=== PATIENT | male | born 1985 | race Caucasian/White ===

== ENCOUNTER 2018-12-24 08:41 | Emergency (ER) | payer OTHER ==
[~2018-12-24] VITALS: Ht 167.6 cm; Wt 86.2 kg
[2018-12-24] MEDS ORDERED: KETOROLAC 15 MG/ML VIAL. IV ONE (09:30)
--- NOTE | 2018-12-24 09:31 | PHYS DOC ---
Adult General Chief Complaint Chief Complaint: FLANK PAIN HPI HPI Patient is a 33 year old male who presents with left flank pain. The pain started a week ago and has gotten worse. Located at the left flank and radiates to his abdomen and testicle. Pt describes a shooting, sharp pain. He tried taking Advil for the pain but it did not help. Pain is worse when laying on his back and side. He complains of CVA tenderness, nausea and chills. Denies hematuria, vomiting, diarrhea, fever or recent illness. He states that he has a history of passing 3 kidney stones. His first stone was diagnosed by a doctor around a year ago. His last stone was a month ago but he did not see a doctor. He is unsure if he was ever had a CT scan and does not currently have a PCP. Review of Systems Review of Systems Constitutional: Denies fever, complains of chills [] Eyes: Denies change in visual acuity, redness, or eye pain [] HENT: Denies nasal congestion or sore throat [] Respiratory: Denies cough or shortness of breath [] Cardiovascular: No additional information not addressed in HPI [] GI: Denies vomiting, bloody stools or diarrhea, complains of nausea [] : Denies dysuria or hematuria, complains of left flank pain [] Musculoskeletal: Denies back pain or joint pain [] Integument: Denies rash or skin lesions [] Neurologic: Denies headache, focal weakness or sensory changes [] Endocrine: Denies polyuria or polydipsia [] All other systems were reviewed and found to be within normal limits, except as documented in this note. Current Medications Current Medications Current Medications Medications (Trade) Dose Ordered Sig/Hanane Start Time Stop Time Status Last Admin Dose Admin Ketorolac Tromethamine (Toradol 15mg Vial) 15 mg 1X ONCE 12/24/18 09:30 12/24/18 09:49 DC Allergies Allergies Allergies Coded Allergies Type Severity Reaction Last Updated Verified No Known Drug Allergies 12/24/18 No Physical Exam Physical Exam Constitutional: Well developed, well nourished, in acute distress, non-toxic appearance. [] HENT: Normocephalic, atraumatic, bilateral external ears normal, oropharynx moist, no oral exudates, nose normal. [] Eyes: PERRLA, EOMI, conjunctiva normal, no discharge. [] Neck: Normal range of motion, no tenderness, supple, no stridor. [] Pulmonary: Normal respiratory effort no increased work of breathing no obvious chest wall trauma Abdomen: Bowel sounds normal, soft, mild cva and left mida bdotenderness, no masses, no pulsatile masses. [] Skin: Warm, dry, no erythema, no rash. [] Back: CVA tenderness. [] Extremities: No tenderness, no cyanosis, no clubbing, ROM intact, no edema. [] Neurologic: Alert and oriented X 3, normal motor function, normal sensory function, no focal deficits noted. [] Psychologic: Affect normal, judgement normal, mood normal. [] Current Patient Data Vital Signs Vital Signs Date Time Temp Pulse Resp B/P (MAP) Pulse Ox O2 Delivery O2 Flow Rate FiO2 12/24/18 09:39 97.8 88 14 146/91 (109) 97 Room Air 97.8 Lab Values Laboratory Tests Test 12/24/18 09:00 Urine Collection Type Unknown Urine Color Yellow Urine Clarity Clear Urine pH 6.5 Urine Specific [place] 1.020 Urine Protein Negative mg/dL (NEG-TRACE) Urine Glucose (UA) Negative mg/dL (NEG) Urine Ketones (Stick) Negative mg/dL (NEG) Urine Blood Negative (NEG) Urine Nitrite Negative (NEG) Urine Bilirubin Negative (NEG) Urine Urobilinogen Dipstick 0.2 mg/dL (0.2 mg/dL) Urine Leukocyte Esterase Negative (NEG) Urine RBC Rare /HPF (0-2) Urine WBC Rare /HPF (0-4) Urine Squamous Epithelial Cells Occ /LPF Urine Bacteria Few /HPF (0-FEW) EKG EKG [] Radiology/Procedures Radiology/Procedures CT abdomen pelvis without contrast[] Impressions: IMPRESSION: 1. Bilateral nephrolithiasis. No evidence of hydronephrosis. Course & Med Decision Making Course & Med Decision Making Pertinent Labs and Imaging studies reviewed. (See chart for details) []33-year-old male with kidney stone type pain CT scan noted above multiple kidney stones but no extract of hydro-patient refused lab work given the fact there is no hydro-and essentially negative urinalysis this is probably reasonable although I did tell nursing risk of a missed diagnosis without lab work. He understands he does not want to do it. Patient was given a perception for some pain medication for couple of days and advised to follow-up for any fever refractory pain Michael Disclaimer Michael Disclaimer This electronic medical record was generated, in whole or in part, using a voice recognition dictation system. Departure Departure Impression: Primary Impression: Kidney stone Disposition: HOME, SELF-CARE Condition: STABLE Scripts Hydrocodone/Apap 5-325 (NORCO 5-325 TABLET) 1 Each Tablet 1-2 EACH PO PRN Q6HRS PRN for PAIN, #15 as needed for pain Prov: DANYEL HAGEN MD 12/24/18 DANYEL HAGEN MD Dec 24, 2018 09:31
[2018-12-24 09:42] LABS: BILIRUBIN,URINE NEGATIVE (NEG); CLARITY,URINE CLEAR; COLOR,URINE YELLOW; NITRITE,URINE NEGATIVE (NEG); PH,URINE 6.5; PROTEIN,URINE NEGATIVE (NEG-TRACE); UROBILINOGEN,URINE 0.2 mg/dL (0.2 mg/dL)
[2018-12-24 09:59] LABS: BACTERIA,URINE FEW /HPF (0-FEW); RBC,URINE RARE /HPF (0-2); SQUAMOUS EPITHELIAL CELL,UR OCC /LPF; WBC,URINE RARE /HPF (0-4)
--- NOTE | 2018-12-24 10:04 | RAD ---
Examination: CT of the abdomen pelvis without contrast HISTORY: History of left flank pain COMPARISON: 04/04/2009 TECHNIQUE: Axial CT images of the abdomen pelvis were performed without contrast. Coronal and sagittal reformats are performed. Exposure: One or more of the following individualized dose reduction techniques were utilized for this examination: 1. Automated exposure control 2. Adjustment of the mA and/or kV according to patient size 3. Use of iterative reconstruction technique FINDINGS: The bibasilar lungs are clear. No evidence of free air identified in the abdomen. The evaluation of the solid organs is limited due to lack of IV contrast. The evaluation of bowel is limited due to lack of oral contrast. The visualized noncontrasted liver, spleen, adrenals grossly appears unremarkable. The gallbladder is mildly distended. The stomach is mildly distended. The visualized pancreas grossly appears unremarkable. The small bowel is nondilated. The appendix is normal. Feces and gas noted in the colon. Bilateral intrarenal collecting system calculi identified in the kidneys with the largest measuring 4 mm in the left kidney. No evidence of hydronephrosis. The caliber of the aorta grossly appears unremarkable. Mild degenerative changes thoracic lumbar spine. IMPRESSION: 1. Bilateral nephrolithiasis. No evidence of hydronephrosis. Electronically signed by: Jefry Acevedo MD (12/24/2018 10:01 AM) [id number]
[2018-12-24] MEDS ORDERED: HYDR-3164 PO (10:27)
[2018-12-24 10:40] VITALS: BP 135/85
== END 2018-12-24 10:51 | disposition home or self-care (01) ==
LOC: ER 08:41
DX: N20.0 Calculus of kidney (principal)
CPT/HCPCS: 74176; 81001; 99284